=== PATIENT | male | born 1950 ===

== ENCOUNTER 2017-11-08 11:41 | Inpatient (IN) | payer BC, MEDICARE ==
[2017-11-08 11:41] VITALS: BMI 27.6
--- NOTE | 2017-11-08 12:36 | C.PDOC ---
History Of Present Illness 67 y/o male presents to the ED complaining of rectal bleeding x 7 days. Patient states that he has been feeling weak today. He was seen in [facility] on Monday (11/05/17) and was discharged home. Patient notes that he has diarrhea but his appetite is normal. Denies fever, rash, travel or any further medical complaints. PMD: Aj Noble MD Time Seen by Provider: 11/08/17 12:05 Chief Complaint (Nursing): GI Problem History Per: Patient History/Exam Limitations: no limitations Onset/Duration Of Symptoms: Days (x7 days) Current Symptoms Are (Timing): Still Present Past Medical History Vital Signs: Last Vital Signs Temp 98.2 F 11/08/17 12:06 Pulse 73 11/08/17 12:06 Resp 20 11/08/17 12:06 BP 120/73 11/08/17 12:06 Pulse Ox 99 11/08/17 12:06 - Medical History PMH: HTN, Hypercholesterolemia, Hyperlipidemia, Hypothyroidism Other PMH: Colon CA Other Surgeries: Colon resection - Social History Hx Tobacco Use: No (Never smoked) Hx Alcohol Use: Yes (Socially) Hx Substance Use: No Review Of Systems Except As Marked, All Systems Reviewed And Found Negative. (As per HPI, otherwise negative) Constitutional: Negative for: Fever Gastrointestinal: Positive for: Diarrhea, Hematochezia Skin: Negative for: Rash Physical Exam - Physical Exam Appears: Well, No Acute Distress Skin: Normal Color, Warm, Dry Head: Atraumatic, Normacephalic Eye(s): bilateral: Normal Inspection, PERRL, EOMI Nose: Normal Neck: Normal, Supple Chest: Symmetrical Cardiovascular: Rhythm Regular, No Murmur Respiratory: Normal Breath Sounds, No Accessory Muscle Use Gastrointestinal/Abdominal: Normal Exam, Soft, No Tenderness Back: Normal Inspection Extremity: Normal ROM Neurological/Psych: Oriented x3 ED Course And Treatment O2 Sat by Pulse Oximetry: 99 (RA) Pulse Ox Interpretation: Normal Medical Decision Making Medical Decision Making: Time: 12:39 Plan: CMP Lipase CBC w/ diff Zofran 4mg IVP Sodium Chloride 1L IV ED obtain labs Saline lock 3ml NS Scribe Attestation: Documented by Nathalie Goldsmith acting as a scribe for SKINNY Hale. Scribe Attestation: All medical record entries made by the Scribe were at my direction and personally dictated by me. I have reviewed the chart and agree that the record accurately reflects my personal performance of the history, physical exam, medical decision making, and the department course for this patient. I have also personally directed, reviewed, and agree with the discharge instructions and disposition. Disposition - Disposition Forms: Schedule [employer]vy (Croatian)
[2017-11-08] MEDS ORDERED: Sodium Chloride 0.9% 1,000 ML IV ONE (12:39)
[2017-11-08] MEDS ORDERED: Sodium Chloride 0.9% 1,000 ML ONE (12:46)
[2017-11-08 13:00] LABS: BASO % 0.5 % (0.0-2.0); EOS # 0.1 K/uL (0.0-0.7); EOS % 0.7 % (0.0-4.0); HEMOGLOBIN 9.2 g/dL (12.0-18.0); LYMPH # 1.8 K/uL (1.0-4.3); LYMPH % 19.5 % (20.0-40.0); MEAN CELL VOLUME 94.7 fL (80.0-94.0); MEAN CORPUSCULAR HEMOGLOBIN 32.9 pg (27.0-31.0); MEAN CORPUSCULAR HGB CONC 34.7 g/dL (33.0-37.0); MEAN PLATELET VOLUME 8.6 fL (7.2-11.7); MONO # 0.7 K/uL (0.0-0.8); MONO % 8.1 % (0.0-10.0); NEUT # 6.4 K/uL (1.8-7.0); NEUT % 71.2 % (50.0-75.0); RBC 2.78 Mil/uL (4.40-5.90); RED CELL DISTRIBUTION WIDTH 13.5 % (11.5-14.5)
[2017-11-08 13:08] LABS: ALB/GLOB RATIO 1.3 (1.0-2.1); ALBUMIN 3.8 g/dL (3.5-5.0); ALT/SGPT 42 U/L (21-72); AST/SGOT 30 U/L (17-59); BLOOD UREA NITROGEN 13 mg/dL (9-20); CALCIUM 8.5 mg/dl (8.6-10.4); GFR AFRICAN-AMERICAN > 60; GFR NON-AFRICAN AMERICAN > 60; LIPASE 87 U/L (23-300)
--- NOTE | 2017-11-08 15:02 | C.PDOC ---
History Of Present Illness <Rosalia See - Last Filed: 11/08/17 15:15> <Bri Blevins - Last Filed: 11/08/17 17:57> 67 y/o male presents to the ED complaining of rectal bleeding x 7 days. Patient states that he has been feeling weak today. He was seen in [facility] on Monday (11/05/17) and was discharged home. Patient notes that he has diarrhea but his appetite is normal. Denies fever, rash, travel or any further medical complaints. PMD: Aj Noble MD (Bri Blevins) <Rosalia See - Last Filed: 11/08/17 15:15> History Per: Patient History/Exam Limitations: no limitations Onset/Duration Of Symptoms: Days (x7days) Current Symptoms Are (Timing): Still Present Recent travel outside of the [place]: No <Bri Blevins - Last Filed: 11/08/17 17:57> Time Seen by Provider: 11/08/17 12:05 Chief Complaint (Nursing): GI Problem Past Medical History Reviewed: Historical Data, Nursing Documentation, Vital Signs - Medical History PMH: HTN, Hypercholesterolemia, Hyperlipidemia, Hypothyroidism Other PMH: Colon CA Other Surgeries: Colon resection Family History: States: Unknown Family Hx - Social History Hx Tobacco Use: No (Never Smoked) Hx Alcohol Use: Yes (Socially) Hx Substance Use: No <Bri Blevins - Last Filed: 11/08/17 17:57> Vital Signs: Last Vital Signs Temp 98.2 F 11/08/17 12:06 Pulse 73 11/08/17 12:06 Resp 20 11/08/17 12:06 BP 120/73 11/08/17 12:06 Pulse Ox 99 11/08/17 17:56 Review Of Systems Except As Marked, All Systems Reviewed And Found Negative. (As per HPI, otherwise negative) Constitutional: Positive for: Weakness. Negative for: Fever Gastrointestinal: Positive for: Diarrhea, Hematochezia Skin: Negative for: Rash <Bri Blevins - Last Filed: 11/08/17 17:57> Physical Exam - Physical Exam Eye(s): bilateral: Normal Inspection, PERRL, EOMI <Rosalia See - Last Filed: 11/08/17 15:15> - Physical Exam Appears: Well, No Acute Distress Skin: Normal Color, Warm, Dry, No Rash Head: Atraumatic, Normacephalic Eye(s): bilateral: Normal Inspection, PERRL, EOMI Nose: Normal Oral Mucosa: Moist Throat: Normal Neck: Normal, Supple Chest: Symmetrical, No Tenderness Cardiovascular: Rhythm Regular, No Friction Rub, No Murmur Respiratory: Normal Breath Sounds, No Accessory Muscle Use Gastrointestinal/Abdominal: Normal Exam, Soft, No Tenderness Rectal: Heme Positive, Blood Streaked Stool, Hemorrhoids (Large external hemorrhoids) Back: Normal Inspection, No CVA Tenderness Extremity: Normal ROM Neurological/Psych: Oriented x3, Normal Speech, Normal Motor, Normal Sensation Gait: Steady <Bri Blevins - Last Filed: 11/08/17 17:57> ED Course And Treatment - Laboratory Results Result Diagrams: 11/08/17 12:53 11/08/17 12:53 <Rosalia See - Last Filed: 11/08/17 15:15> - Laboratory Results Result Diagrams: 11/08/17 12:53 11/08/17 12:53 O2 Sat by Pulse Oximetry: 99 (RA) Pulse Ox Interpretation: Normal <rBi Blevins - Last Filed: 11/08/17 17:57> Medical Decision Making <Rosalia See - Last Filed: 11/08/17 15:15> <Bri Blevins C - Last Filed: 11/08/17 17:57> Medical Decision Making: Time: 12:39 Plan: CMP Lipase CBC w/ diff Zofran 4mg IVP Sodium Chloride 1L IV ED obtain labs Saline lock 3ml NS Old records reviewed, the patient was last seen at [place] on 11/05/17 had hgb of 10.7. Today the hgb of 9.2. There was a significant drop and patient continues to have active bleeding on exam. The case was discussed with Dr. Aj Noble who states to admit the patient to [facility]. Daniela Goldsmith agrees to admit the patient to his service. Scribe Attestation: Documented by Nathalie Goldsmith acting as a scribe for PA. MD Yolanda Hale Attestation: All medical record entries made by the Scribe were at my direction and personally dictated by me. I have reviewed the chart and agree that the record accurately reflects my personal performance of the history, physical exam, medical decision making, and the department course for this patient. I have also personally directed, reviewed, and agree with the discharge instructions and disposition. (Bri Blevins) Disposition <Rosalia See - Last Filed: 11/08/17 15:15> - Disposition Disposition Time: 15:01 - POA Present On Arrival: None <Bri Blevins - Last Filed: 11/08/17 17:57> - Disposition Disposition: HOSPITALIZED Condition: GOOD - Clinical Impression Clinical Impression: Lower GI bleed, Hemorrhoid, Anemia
--- NOTE | 2017-11-08 20:01 | CP.PCM.HP ---
Past Patient History - Infectious Disease Hx of Infectious Diseases: None - Past Social History Smoking Status: Never Smoked - CARDIAC Hx Hypercholesterolemia: Yes Hx Hypertension: Yes - ENDOCRINE/METABOLIC Hx Hypothyroidism: Yes - HEMATOLOGICAL/ONCOLOGICAL Hx Cancer: Yes (colon CA) - GASTROINTESTINAL Other/Comment: colon CA - PSYCHIATRIC Hx Substance Use: No - SURGICAL HISTORY Other/Comment: Colon resection - ANESTHESIA Hx Anesthesia: Yes Hx Anesthesia Reactions: No Hx Malignant Hyperthermia: No Meds Allergies/Adverse Reactions: Allergies Allergy/AdvReac Type Severity Reaction Status Date / Time Penicillins Allergy ANAPHYLAXIS Verified 11/05/17 14:35 Physical Exam - Constitutional Appears: Well - Head Exam Head Exam: ATRAUMATIC, NORMAL INSPECTION, NORMOCEPHALIC - Eye Exam Eye Exam: EOMI, Normal appearance, PERRL - ENT Exam ENT Exam: Mucous Membranes Moist, Normal Exam - Neck Exam Neck exam: Positive for: Normal Inspection - Respiratory Exam Respiratory Exam: Decreased Breath Sounds - Cardiovascular Exam Cardiovascular Exam: REGULAR RHYTHM, +S1, +S2 - GI/Abdominal Exam GI & Abdominal Exam: Diminished Bowel Sounds, Soft - Rectal Exam Rectal Exam: Deferred Results - Vital Signs Recent Vital Signs: Last Vital Signs Temp 98.3 F 11/08/17 17:40 Pulse 69 11/08/17 17:40 Resp 20 11/08/17 17:40 BP 110/71 11/08/17 17:40 Pulse Ox 99 11/08/17 17:57 - Labs Result Diagrams: 11/08/17 12:53 11/08/17 12:53 Labs: Laboratory Results - last 24 hr 11/08/17 11/08/17 11/08/17 12:00 12:53 12:53 WBC 9.0 RBC 2.78 L Hgb 9.2 L Hct 26.4 L MCV 94.7 H MCH 32.9 H MCHC 34.7 RDW 13.5 Plt Count 222 MPV 8.6 Neut % (Auto) 71.2 Lymph % (Auto) 19.5 L [place] % (Auto) 8.1 Eos % (Auto) 0.7 Baso % (Auto) 0.5 Neut # 6.4 Lymph # 1.8 Dewey # 0.7 Eos # 0.1 Baso # 0.0 Sodium 135 Potassium 4.6 Chloride 97 L Carbon Dioxide 32 H Anion Gap 11 BUN 13 Creatinine 1.1 Est GFR ( Amer) > 60 Est GFR (Non-Af Amer) > 60 POC Glucose (mg/dL) 100 Random Glucose 90 Calcium 8.5 L Total Bilirubin 0.3 AST 30 ALT 42 Alkaline Phosphatase 40 Total Protein 6.8 Albumin 3.8 Globulin 3.0 Albumin/Globulin Ratio 1.3 Lipase 87
[2017-11-08] MEDS: Sodium Chloride 0.9% 1,000 ML IV SCH (20:30)
[2017-11-08 20:39] LABS: HEMOGLOBIN 7.8 g/dL (12.0-18.0); MEAN CELL VOLUME 94.5 fL (80.0-94.0); MEAN CORPUSCULAR HEMOGLOBIN 32.4 pg (27.0-31.0); MEAN CORPUSCULAR HGB CONC 34.3 g/dL (33.0-37.0); MEAN PLATELET VOLUME 8.6 fL (7.2-11.7); RBC 2.41 Mil/uL (4.40-5.90); RED CELL DISTRIBUTION WIDTH 13.6 % (11.5-14.5); WHITE BLOOD COUNT 8.3 K/uL (4.8-10.8)
[2017-11-09] MEDS: Levothyroxine 100 MCG TAB PO SCH (06:10)
[2017-11-09 08:15] LABS: HEMOGLOBIN 8.4 g/dL (12.0-18.0); MEAN CELL VOLUME 94.6 fL (80.0-94.0); MEAN CORPUSCULAR HEMOGLOBIN 33.3 pg (27.0-31.0); MEAN CORPUSCULAR HGB CONC 35.2 g/dL (33.0-37.0); MEAN PLATELET VOLUME 8.4 fL (7.2-11.7); RBC 2.51 Mil/uL (4.40-5.90); RED CELL DISTRIBUTION WIDTH 13.4 % (11.5-14.5); WHITE BLOOD COUNT 7.1 K/uL (4.8-10.8)
--- NOTE | 2017-11-09 11:44 | CP.PCM.CON ---
History of Present Illness - History of Present Illness History of Present Illness: 67 year old male with a history colon cancer diagnosed 20 years ago (s/p surgery , chemotherapy and radiation), likely cured, admitted with painless hematochezia , and anemia. The patient notes to recurrent episodes of hematochezia with bowel movements for several days. He went to [facility] initially but was discharged and told to follow up with GI as an outpatient. Due to persistent hematochezia which was associated with dizziness, he came to [facility]. He denies N/V. Past medical history: Colon cancer Past surgical history: Hemicolectomy Family history: Denies hematologic and oncologic problems Social history: Denies tobacco, alcohol, and illicit drug use. Allergies: Penicillins Review of systems: All remaining review of systems including HEENT, cardiovascular, respiratory, gastrointestinal, genitourinary, musculoskeletal, dermatologic, neurologic, and psychiatric are negative unless mentioned in the HPI. Past Patient History - Infectious Disease Hx of Infectious Diseases: None - Past Medical History & Family History Past Medical History?: Yes - Past Social History Smoking Status: Never Smoked - CARDIAC Hx Hypercholesterolemia: Yes Hx Hypertension: Yes - ENDOCRINE/METABOLIC Hx Hypothyroidism: Yes - HEMATOLOGICAL/ONCOLOGICAL Hx Cancer: Yes (colon CA) - MUSCULOSKELETAL/RHEUMATOLOGICAL Hx Falls: No - GASTROINTESTINAL Other/Comment: colon CA - PSYCHIATRIC Hx Substance Use: No - SURGICAL HISTORY Other/Comment: Colon resection - ANESTHESIA Hx Anesthesia: Yes Hx Anesthesia Reactions: No Hx Malignant Hyperthermia: No Meds Allergies/Adverse Reactions: Allergies Allergy/AdvReac Type Severity Reaction Status Date / Time Penicillins Allergy ANAPHYLAXIS Verified 11/05/17 14:35 - Medications Medications: Current Medications Bisacodyl (Dulcolax) 10 mg PO ONCE ONE Stop: 11/09/17 17:01 Sodium Chloride (Sodium Chloride 0.9%) 1,000 mls @ 75 mls/hr IV .[id number] [facility] Last Admin: 11/08/17 20:30 Dose: 75 mls/hr Levothyroxine Sodium (Synthroid) 100 mcg PO DAILY@0630 [facility] Last Admin: 11/09/17 06:10 Dose: 100 mcg Metoclopramide HCl (Reglan) 5 mg IVP Q6 [facility] Pantoprazole Sodium (Protonix Inj) 40 mg IVP DAILY [facility] Last Admin: 11/09/17 09:40 Dose: 40 mg Polyethylene Glycol/Electrolytes (Golytely) 4,000 ml PO ONCE ONE Stop: 11/09/17 13:31 Temazepam (Restoril) 15 mg PO HS PRN PRN Reason: Insomnia Last Admin: 11/09/17 00:55 Dose: 15 mg Physical Exam - Head Exam Head Exam: ATRAUMATIC - Eye Exam Eye Exam: Normal appearance - ENT Exam ENT Exam: Mucous Membranes Dry - Respiratory Exam Respiratory Exam: NORMAL BREATHING PATTERN - Cardiovascular Exam Cardiovascular Exam: +S1, +S2 - GI/Abdominal Exam GI & Abdominal Exam: Normal Bowel Sounds - Extremities Exam Extremities exam: Positive for: normal inspection - Neurological Exam Neurological exam: Oriented x3 - Psychiatric Exam Psychiatric exam: Normal Affect, Normal Mood - Skin Skin Exam: Warm Results - Vital Signs Recent Vital Signs: Last Vital Signs Temp 97.8 F 11/09/17 08:20 Pulse 55 L 11/09/17 08:20 Resp 20 11/09/17 08:20 BP 102/58 L 11/09/17 08:20 Pulse Ox 96 11/09/17 08:20 - Labs Result Diagrams: 11/09/17 08:09 11/08/17 12:53 Labs: Laboratory Results - last 24 hr 11/08/17 11/08/17 11/08/17 12:00 12:53 12:53 WBC 9.0 RBC 2.78 L Hgb 9.2 L Hct 26.4 L MCV 94.7 H MCH 32.9 H MCHC 34.7 RDW 13.5 Plt Count 222 MPV 8.6 Neut % (Auto) 71.2 Lymph % (Auto) 19.5 L [place] % (Auto) 8.1 Eos % (Auto) 0.7 Baso % (Auto) 0.5 Neut # 6.4 Lymph # 1.8 [place] # 0.7 Eos # 0.1 Baso # 0.0 Sodium 135 Potassium 4.6 Chloride 97 L Carbon Dioxide 32 H Anion Gap 11 BUN 13 Creatinine 1.1 Est GFR ( Amer) > 60 Est GFR (Non-Af Amer) > 60 POC Glucose (mg/dL) 100 Random Glucose 90 Calcium 8.5 L Total Bilirubin 0.3 AST 30 ALT 42 Alkaline Phosphatase 40 Total Protein 6.8 Albumin 3.8 Globulin 3.0 Albumin/Globulin Ratio 1.3 Lipase 87 11/08/17 11/09/17 11/09/17 20:32 06:16 08:09 WBC 8.3 7.1 RBC 2.41 L 2.51 L Hgb 7.8 L 8.4 L Hct 22.7 L 23.8 L MCV 94.5 H 94.6 H MCH 32.4 H 33.3 H MCHC 34.3 35.2 RDW 13.6 13.4 Plt Count 208 217 MPV 8.6 8.4 Neut % (Auto) Lymph % (Auto) [place] % (Auto) Eos % (Auto) Baso % (Auto) Neut # Lymph # [place] # Eos # Baso # Sodium Potassium Chloride Carbon Dioxide Anion Gap BUN Creatinine Est GFR ( Amer) Est GFR (Non-Af Amer) POC Glucose (mg/dL) 86 Random Glucose Calcium Total Bilirubin AST ALT Alkaline Phosphatase Total Protein Albumin Globulin Albumin/Globulin Ratio Lipase Assessment & Plan (1) Anemia Assessment and Plan: acute GI bleeding for GI w/u will check ferritin, retic count, b12, folate transfusion support PRN Status: Acute (2) History of colon cancer Assessment and Plan: likely cured will add CEA for GI webber given hematochezia Thank you for this interesting consult. Status: Acute
[2017-11-09] MEDS: Sodium Chloride 0.9% 1,000 ML IV SCH ×2 (13:01→22:16)
[2017-11-09] MEDS ORDERED: Peg-Electrolyte Oral Soln 4L (Golytely) PO ONE (13:30)
[2017-11-09 15:00] LABS: PROTHROMBIN TIME 11.3 SECONDS (9.7-12.2)
[2017-11-09] MEDS ORDERED: Bisacodyl 5mg EC Tab PO ONE (17:00)
--- NOTE | 2017-11-09 19:24 | CP.PCM.PN ---
Subjective - Date & Time of Evaluation Date of Evaluation: 11/09/17 Time of Evaluation: 12:00 - Subjective Subjective: clinically same Objective - Vital Signs/Intake and Output Vital Signs (last 24 hours): Temp Pulse Resp BP Pulse Ox 97.9 F 61 20 107/66 95 11/09/17 15:00 11/09/17 15:30 11/09/17 15:00 11/09/17 15:00 11/09/17 15:00 - Medications Medications: Current Medications Sodium Chloride (Sodium Chloride 0.9%) 1,000 mls @ 75 mls/hr IV .[id number] [facility] Last Admin: 11/09/17 13:01 Dose: 75 mls/hr Levothyroxine Sodium (Synthroid) 100 mcg PO DAILY@0630 [facility] Last Admin: 11/09/17 06:10 Dose: 100 mcg Metoclopramide HCl (Reglan) 5 mg IVP Q6 [facility] Last Admin: 11/09/17 12:58 Dose: 5 mg Pantoprazole Sodium (Protonix Inj) 40 mg IVP DAILY [facility] Last Admin: 11/09/17 09:40 Dose: 40 mg Temazepam (Restoril) 15 mg PO HS PRN PRN Reason: Insomnia Last Admin: 11/09/17 00:55 Dose: 15 mg - Labs Labs: 11/09/17 08:09 11/08/17 12:53 PT 11.3 SECONDS (9.7-12.2) 11/09/17 15:25 INR 1.0 11/09/17 15:25 APTT 29 SECONDS (21-34) 11/09/17 15:25
[2017-11-09 20:07] LABS: HEMOGLOBIN 7.6 g/dL (12.0-18.0); MEAN CELL VOLUME 94.7 fL (80.0-94.0); MEAN CORPUSCULAR HEMOGLOBIN 32.9 pg (27.0-31.0); MEAN CORPUSCULAR HGB CONC 34.7 g/dL (33.0-37.0); MEAN PLATELET VOLUME 8.7 fL (7.2-11.7); RBC 2.31 Mil/uL (4.40-5.90); RED CELL DISTRIBUTION WIDTH 13.7 % (11.5-14.5); WHITE BLOOD COUNT 6.8 K/uL (4.8-10.8)
[2017-11-10] MEDS: Levothyroxine 100 MCG TAB PO SCH (06:21)
[2017-11-10 08:05] LABS: HEMOGLOBIN 7.7 g/dL (12.0-18.0); MEAN CELL VOLUME 94.3 fL (80.0-94.0); MEAN CORPUSCULAR HEMOGLOBIN 32.8 pg (27.0-31.0); MEAN CORPUSCULAR HGB CONC 34.8 g/dL (33.0-37.0); MEAN PLATELET VOLUME 8.8 fL (7.2-11.7); RBC 2.36 Mil/uL (4.40-5.90); RED CELL DISTRIBUTION WIDTH 13.6 % (11.5-14.5); WHITE BLOOD COUNT 6.1 K/uL (4.8-10.8)
[2017-11-10 08:44] LABS: FERRITIN 48.1 ng/mL
[2017-11-10 09:21] LABS: FOLATE 10.6 ng/mL
[2017-11-10] MEDS ORDERED: Midazolam 2 MG/2 ML VIAL ONE (10:20)
[2017-11-10] MEDS ORDERED: Propofol 10 mg/ml Inj (20 ML) ONE (10:20)
[2017-11-10] MEDS ORDERED: Lactated Ringer's 500 ML IV ONE ×2 (10:24)
[2017-11-10] MEDS ORDERED: Belladonna-Phenobarbital PO STA (10:49)
[2017-11-10] MEDS: Lactated Ringer's 500 ML IV SCH (12:10)
[2017-11-10] MEDS ORDERED: Ferric Sodium Gluconat Complex 62.5 mg/5 ml Vial IVPB SCH (13:00)
[2017-11-10] MEDS: Ferric Sodium Gluconat Complex 125 MG in Sodium Chloride 0.9% 100 ML IVPB SCH (14:09)
[2017-11-10] MEDS: Sodium Chloride 0.9% 1,000 ML IV SCH (14:41)
--- NOTE | 2017-11-10 19:39 | CP.PCM.PN ---
Subjective - Date & Time of Evaluation Date of Evaluation: 11/10/17 Time of Evaluation: 12:20 - Subjective Subjective: clinically same Objective - Vital Signs/Intake and Output Vital Signs (last 24 hours): Temp Pulse Resp BP Pulse Ox 97.8 F 86 20 114/71 100 11/10/17 15:17 11/10/17 16:26 11/10/17 15:17 11/10/17 15:17 11/10/17 15:17 Intake and Output: 11/10/17 11/11/17 18:59 06:59 Intake Total 1475 Balance 1475 - Medications Medications: Current Medications Sodium Chloride (Sodium Chloride 0.9%) 1,000 mls @ 75 mls/hr IV .[id number] [facility] Last Admin: 11/10/17 14:41 Dose: Not Given Lactated Ringer's (Lactated Ringer's 500ml) 500 mls @ 75 mls/hr IV .[id number] [facility] Last Admin: 11/10/17 12:10 Dose: 75 mls/hr Ferric Sodium Gluconate Complex 125 mg/ Sodium Chloride 110 mls @ 110 mls/hr IVPB DAILY [facility] Stop: 11/18/17 14:01 Last Admin: 11/10/17 14:09 Dose: 110 mls/hr Levothyroxine Sodium (Synthroid) 100 mcg PO DAILY@0630 [facility] Last Admin: 11/10/17 06:21 Dose: 100 mcg Metoclopramide HCl (Reglan) 5 mg IVP Q6 [facility] Last Admin: 11/10/17 18:00 Dose: 5 mg Pantoprazole Sodium (Protonix Inj) 40 mg IVP DAILY [facility] Last Admin: 11/10/17 09:00 Dose: 40 mg Temazepam (Restoril) 15 mg PO HS PRN PRN Reason: Insomnia Last Admin: 11/09/17 22:49 Dose: 15 mg - Labs Labs: 11/10/17 07:25 11/08/17 12:53 PT 11.3 SECONDS (9.7-12.2) 11/09/17 15:25 INR 1.0 11/09/17 15:25 APTT 29 SECONDS (21-34) 11/09/17 15:25
[2017-11-10 19:54] LABS: HEMOGLOBIN 7.4 g/dL (12.0-18.0); MEAN CELL VOLUME 94.6 fL (80.0-94.0); MEAN CORPUSCULAR HEMOGLOBIN 32.6 pg (27.0-31.0); MEAN CORPUSCULAR HGB CONC 34.5 g/dL (33.0-37.0); MEAN PLATELET VOLUME 8.2 fL (7.2-11.7); RBC 2.27 Mil/uL (4.40-5.90); RED CELL DISTRIBUTION WIDTH 13.6 % (11.5-14.5); WHITE BLOOD COUNT 6.9 K/uL (4.8-10.8)
--- NOTE | 2017-11-10 22:04 | CP.PCM.PN ---
Subjective - Date & Time of Evaluation Date of Evaluation: 11/10/17 Time of Evaluation: 12:00 - Subjective Subjective: No complaints s/p EGD and colonoscopy Objective - Vital Signs/Intake and Output Vital Signs (last 24 hours): Temp Pulse Resp BP Pulse Ox 97.8 F 86 20 114/71 100 11/10/17 15:17 11/10/17 16:26 11/10/17 15:17 11/10/17 15:17 11/10/17 15:17 Intake and Output: 11/10/17 11/11/17 18:59 06:59 Intake Total 1475 Balance 1475 - Medications Medications: Current Medications Sodium Chloride (Sodium Chloride 0.9%) 1,000 mls @ 75 mls/hr IV .[id number] [facility] Last Admin: 11/10/17 14:41 Dose: Not Given Lactated Ringer's (Lactated Ringer's 500ml) 500 mls @ 75 mls/hr IV .[id number] [facility] Last Admin: 11/10/17 12:10 Dose: 75 mls/hr Ferric Sodium Gluconate Complex 125 mg/ Sodium Chloride 110 mls @ 110 mls/hr IVPB DAILY [facility] Stop: 11/18/17 14:01 Last Admin: 11/10/17 14:09 Dose: 110 mls/hr Levothyroxine Sodium (Synthroid) 100 mcg PO DAILY@0630 [facility] Last Admin: 11/10/17 06:21 Dose: 100 mcg Metoclopramide HCl (Reglan) 5 mg IVP Q6 [facility] Last Admin: 11/10/17 18:00 Dose: 5 mg Pantoprazole Sodium (Protonix Inj) 40 mg IVP DAILY [facility] Last Admin: 11/10/17 09:00 Dose: 40 mg Temazepam (Restoril) 15 mg PO HS PRN PRN Reason: Insomnia Last Admin: 11/09/17 22:49 Dose: 15 mg - Labs Labs: 11/10/17 19:51 11/08/17 12:53 PT 11.3 SECONDS (9.7-12.2) 11/09/17 15:25 INR 1.0 11/09/17 15:25 APTT 29 SECONDS (21-34) 11/09/17 15:25 - Head Exam Head Exam: ATRAUMATIC - Eye Exam Eye Exam: Normal appearance - ENT Exam ENT Exam: Mucous Membranes Dry - Respiratory Exam Respiratory Exam: NORMAL BREATHING PATTERN - Cardiovascular Exam Cardiovascular Exam: +S1, +S2 - GI/Abdominal Exam GI & Abdominal Exam: Normal Bowel Sounds - Extremities Exam Extremities Exam: Normal Inspection Assessment and Plan (1) Anemia Assessment & Plan: iron deficiecy, GI bleeding no further bleeding will start IV iron Status: Acute (2) History of colon cancer Assessment & Plan: likely cured Status: Acute
[2017-11-11] MEDS: Sodium Chloride 0.9% 1,000 ML IV SCH (00:16)
[2017-11-11] MEDS: Lactated Ringer's 500 ML IV SCH ×2 (00:20→08:10)
[2017-11-11 03:40] VITALS: RESP 20
--- NOTE | 2017-11-11 04:43 | CON ---
DATE: 11/09/[address] Doc Kim to Dr. Kory Goldsmith. REASON FOR CONSULTATION: I was called for GI consultation by the admitting medical team. The patient is seen and fully examined on 11/09/2017 as requested by the patient himself, as well as medical staff in the floor. The entire chart is reviewed, including but not limited to the most recent lab and radiology study results, current and the previous medication lists, current and the previous medical events, allergy to medication list as well as all the available current and the previous medical records. Case was discussed at length with the staff. HISTORY OF PRESENT ILLNESS: This is a 67-year-old male, very well known case for me from previous hospital visits, who was admitted to the hospital through the emergency room with the main complaint of recurrent episode of excessive rectal bleeding, dyspepsia, postprandial abdominal distention with generalized weakness and malaise. The patient also reported intermittent periods of diarrhea, but no chills or fever, no palpitation, chest pain or significant complaint of shortness of breath. PAST MEDICAL HISTORY: Including but not limited to: 1. Colon polyp, diagnosed few years ago. 2. Hypertension. 3. Hyperlipidemia. 4. Hypothyroidism. 5. Reported colon cancer with partial colon resection according to the history. FAMILY HISTORY: Unknown. SOCIAL HISTORY: Positive for occasional alcohol intake, but no cigarette smoking. CURRENT MEDICATION: Medication lists are reviewed. ADMISSION BLOOD WORKUP: At the time of the admission showed hemoglobin of 9.2 with low hematocrit 26.4 with increased CO2 content 32. PHYSICAL EXAMINATION: GENERAL: A 67-year-old male, appears to be awake, alert, oriented, complaining of some crampy pain with recurrent rectal bleeding. VITAL SIGNS: Afebrile with pulse of 76, respiratory rate 20 to 22, blood pressure 128/76. HEENT: Showed mildly pale dry oral mucous membrane, nonicteric sclerae. LUNGS: With scattered crepitation, decreased air entry at bases. HEART: Positive S1 and S2. LYMPH NODES: No lymphadenitis or lymphadenopathy. ABDOMEN: Soft with slight generalized tenderness. No mass or organomegaly. No rebound tenderness or guarding. RECTAL: Positive tone with trace of fresh blood as well as old blood. EXTREMITIES: Without significant clubbing, cyanosis, or edema. NEUROLOGIC: No reported new neurological deficits, sensory or motor. IMPRESSION: 1. Gastrointestinal bleeding, upper versus lower. 2. Rule out occult bleeding gastrointestinal lesion. 3. Anemia, most likely secondary to above. 4. Known history of but not limited to hypertension, hyperlipidemia with hypothyroidism. SUGGESTION: 1. Agree with your plan. 2. Correct any underlying coagulopathy with electrolyte imbalance. 3. Sectional abdominal and pelvic CAT scan. 4. Cancer marker. 5. Endoscopic evaluation of the upper and lower GI tract after adequate preparation and when the patient is more stable clinically. 6. Surgical consultation. Thank you for letting me participate in your patient's case management. Further recommendation and evaluation to follow. Doc Kim MD
[2017-11-11] MEDS: Levothyroxine 100 MCG TAB PO SCH (06:16)
[2017-11-11 07:40] LABS: BASO % 0.3 % (0.0-2.0); EOS # 0.1 K/uL (0.0-0.7); EOS % 1.6 % (0.0-4.0); HEMOGLOBIN 8.4 g/dL (12.0-18.0); LYMPH # 1.6 K/uL (1.0-4.3); LYMPH % 25.9 % (20.0-40.0); MEAN CORPUSCULAR HEMOGLOBIN 32.9 pg (27.0-31.0); MEAN CORPUSCULAR HGB CONC 35.3 g/dL (33.0-37.0); MEAN PLATELET VOLUME 8.5 fL (7.2-11.7); MONO # 0.4 K/uL (0.0-0.8); MONO % 5.9 % (0.0-10.0); NEUT % 66.3 % (50.0-75.0); NRBC % 0.1 % (0.0-2.0); RBC 2.55 Mil/uL (4.40-5.90); RED CELL DISTRIBUTION WIDTH 13.8 % (11.5-14.5)
[2017-11-11] MEDS ORDERED: Ferric Sodium Gluconat Complex 62.5 mg/5 ml Vial ONE (10:19)
[2017-11-11] MEDS: Ferric Sodium Gluconat Complex 125 MG in Sodium Chloride 0.9% 100 ML IVPB SCH (10:24)
--- NOTE | 2017-11-11 13:28 | CP.PCM.PN ---
Subjective - Date & Time of Evaluation Date of Evaluation: 11/11/17 Time of Evaluation: 13:25 - Subjective Subjective: PT REQUESTING TO BE D/C HOME TODAY. CLEARED Y SHIRA PARKER FOR D/C; PT TO F/U WITH HIM ON MONDAY IN THE OFFICE. PER DR. ELDRIDGE F/U WITH HIM ON MONDAY IN THE OFFICE, HOWEVER, PT'S PRIMARY MD IS DR. Jess PARKER WHO HE WILL SEE NEXT WEEK WELL. ALL HOME MEDS TO BE CONTINUED. PER PT HE HAS IRON SUPPLEMENTS AND GI MEDS---PLEASE NOTE THAT NONE OF THESE ARE DOCUMENTED ON THE PT'S HOME MED LIST IN CHART. NO NEW RX GIVEN TODAY PT STATES HE HAS ENOUGH MEDICATION. EXAM UNREMARKABLE. PT VERBALIZES UNDERSTANDING OF ALL D/C INSTRUCTIONS AND MEDS. NO FURTHER ORDERS. Objective - Vital Signs/Intake and Output Vital Signs (last 24 hours): Temp Pulse Resp BP Pulse Ox 97.5 F L 60 20 120/70 96 11/11/17 07:45 11/11/17 08:00 11/11/17 07:45 11/11/17 07:45 11/11/17 07:45 Intake and Output: 11/11/17 11/11/17 06:59 18:59 Intake Total 1999 Balance 1999 - Medications Medications: Current Medications Sodium Chloride (Sodium Chloride 0.9%) 1,000 mls @ 75 mls/hr IV .[id number] [facility] Last Admin: 11/11/17 00:16 Dose: Not Given Lactated Ringer's (Lactated Ringer's 500ml) 500 mls @ 75 mls/hr IV .[id number] [facility] Last Admin: 11/11/17 08:10 Dose: 75 mls/hr Ferric Sodium Gluconate Complex 125 mg/ Sodium Chloride 110 mls @ 110 mls/hr IVPB DAILY [facility] Stop: 11/18/17 14:01 Last Admin: 11/11/17 10:24 Dose: 110 mls/hr Levothyroxine Sodium (Synthroid) 100 mcg PO DAILY@0630 [facility] Last Admin: 11/11/17 06:16 Dose: 100 mcg Metoclopramide HCl (Reglan) 5 mg IVP Q6 [facility] Last Admin: 11/11/17 12:42 Dose: 5 mg Pantoprazole Sodium (Protonix Ec Tab) 40 mg PO DAILY JAYLA Temazepam (Restoril) 15 mg PO HS PRN PRN Reason: Insomnia Last Admin: 11/11/17 02:42 Dose: 15 mg - Labs Labs: 11/11/17 07:26 11/08/17 12:53 PT 11.3 SECONDS (9.7-12.2) 11/09/17 15:25 INR 1.0 11/09/17 15:25 APTT 29 SECONDS (21-34) 11/09/17 15:25
[2017-11-11 14:58] VITALS: BP 132/76; PULSE 62; TEMP 97.9; O2SAT 100
[2017-11-12] MEDS ORDERED: Pantoprazole 40 mg EC Tab PO SCH (10:00)
== END 2017-11-11 14:45 | disposition home or self-care (01) | DRG 812 ==
LOC: C.ER 11:41 → C.9E 15:02 → C.6T 17:07
PROVIDERS: ADMIT Internal Medicine Nephrology; ATTEND Internal Medicine Nephrology
PROC: 0DB88ZX Excision of Small Intestine, Via Natural or Artificial Opening Endoscopic, Diagnostic (ICD-10-PCS; 2017-11-10)
PROC: 0DBE8ZX Excision of Large Intestine, Via Natural or Artificial Opening Endoscopic, Diagnostic (ICD-10-PCS; 2017-11-10 10:21)
PROC: 30233N1 Transfusion of Nonautologous Red Blood Cells into Peripheral Vein, Percutaneous Approach (ICD-10-PCS; principal; 2017-11-11)
DX: D50.0 Iron deficiency anemia secondary to blood loss (chronic) (principal); B96.81 Helicobacter pylori [H. pylori] as the cause of diseases classified elsewhere; K92.1 Melena; E03.9 Hypothyroidism, unspecified; K44.9 Diaphragmatic hernia without obstruction or gangrene; K57.30 Diverticulosis of large intestine without perforation or abscess without bleeding; I10 Essential (primary) hypertension; E78.00 Pure hypercholesterolemia, unspecified; Z85.038 Personal history of other malignant neoplasm of large intestine; Z86.010 Personal history of colon polyps; K20.8 Other esophagitis; K58.9 Irritable bowel syndrome, unspecified; K64.4 Residual hemorrhoidal skin tags; K64.8 Other hemorrhoids; K29.50 Unspecified chronic gastritis without bleeding